=== PATIENT | female | born 1995 | race American Indian/Alaskan Native ===

== ENCOUNTER 2016-10-26 04:26 | Emergency (ER) | payer SELFPAY ==
[~2016-10-26 04:26] MED LIST: MOTRIN PO ONE
[2016-10-26] MEDS: TORADOL IM ONE (05:00)
[2016-10-26] MEDS ORDERED: ZOFRAN ODT PO ONE (05:00)
--- NOTE | 2016-10-26 05:13 | Emergency Department Report ---
HPI - General Chief Complaint: Abdominal Pain Time Seen by Provider: 10/26/16 05:00 - HPI HPI: 21-year-old female presents today with menstrual cramping, nausea, vomiting since 3 AM this morning. I asked if a history of similar symptoms. Patient states that she usually has similar symptoms on the first day of her menses which is today. Patient was seen at [facility] a couple months ago and was worked up and given medication but she did not fill the medication. Denies any other medical complaints. Denies fever, chills, chest pain, shortness of breath , vaginal discharge, urinary symptoms. ED Past Medical Hx - Past Medical History Previous Medical History?: No - Surgical History Past Surgical History?: No - Social History Smoking Status: Current Every Day Smoker Substance Use Type: None - Medications Home Medications: Home Medications Medication Instructions Recorded Confirmed Last Taken Type Ibuprofen [Motrin] 600 mg PO Q8H PRN #30 tablet 10/26/16 Unknown Rx Ondansetron [Zofran Odt] 4 mg PO Q8HR #14 tab.rapdis 10/26/16 Unknown Rx ED Review of Systems ROS: Stated complaint: ABDOMINAL PAIN Other details as noted in HPI Constitutional: denies: chills, fever, malaise Eyes: denies: eye pain ENT: denies: ear pain, throat pain, congestion Respiratory: denies: cough, shortness of breath, wheezing Cardiovascular: denies: chest pain, palpitations Endocrine: no symptoms reported Gastrointestinal: abdominal pain, nausea, vomiting Neurological: denies: headache, weakness Physical Exam - Physical Exam Vital Signs: Vital Signs 10/26/16 04:30 Temperature 98.0 F Pulse Rate 81 Respiratory 26 H Rate Blood Pressure 159/120 O2 Sat by Pulse 100 Oximetry Physical Exam: GENERAL: The patient is well-developed and well-nourished. Patient is in NAD. HEAD: Normocephalic. Atraumatic. CHEST/LUNGS: Clear to auscultation throughout. HEART/CARDIOVASCULAR: Regular rate and rhythm. ABDOMEN: Abdomen is soft, nontender. Bowel sounds normoactive. No guarding or rebound tenderness. Negative for CVA tenderness bilaterally. EXTREMITIES: Peripheral pulses intact. Capillary refill less than 2 seconds. NEURO: Alert and oriented x 3. Normal gait. ED Course Vital Signs 10/26/16 04:30 Temperature 98.0 F Pulse Rate 81 Respiratory 26 H Rate Blood Pressure 159/120 O2 Sat by Pulse 100 Oximetry ED Medical Decision Making - Lab Data Vital Signs 10/26/16 10/26/16 04:30 05:15 Temperature 98.0 F 97.9 F Pulse Rate 81 84 Respiratory 26 H 20 Rate Blood Pressure 159/120 Blood Pressure 145/96 [Right] O2 Sat by Pulse 100 97 Oximetry - Medical Decision Making 21-year-old female presents today with menstrual cramping, nausea, vomiting 2 hours. Positive for history of similar symptoms and states this is not any different. Patient was given Toradol and Zofran today. Patient is in no acute distress at this time. She will be discharged home and is encouraged to follow up with a primary care provider. She will be sent home on Motrin and Zofran and is encouraged to return to the emergency room for any worsening symptoms. Critical care attestation.: If time is entered above; I have spent that time in minutes in the direct care of this critically ill patient, excluding procedure time. ED Disposition Clinical Impression: Menstrual cramps Nausea & vomiting Qualifiers: Vomiting type: unspecified Vomiting Intractability: non-intractable Qualified Code(s): R11.2 - Nausea with vomiting, unspecified Disposition: DISCHARGED TO HOME OR SELFCARE Is pt being admited?: No Does the pt Need Aspirin: No Condition: Stable Instructions: Dysmenorrhea (ED) Additional Instructions: Follow-up with primary care provider. Return to the emergency department if symptoms worsen. Prescriptions: Ibuprofen [Motrin] 600 mg PO Q8H PRN #30 tablet PRN Reason: Pain Ondansetron [Zofran Odt] 4 mg PO Q8HR #14 tab.rapdis Referrals: PRIMARY CARE, [Primary Care Provider] - 3-5 Days [facility] [Outside] - 3-5 Days Forms: Work/School Release Form(ED) Time of Disposition: 05:18
[2016-10-26 05:18] VITALS: BP 145/96
== END 2016-10-26 05:17 | disposition home or self-care (01) ==
LOC: ED 04:26
DX: N94.6 Dysmenorrhea, unspecified (principal); R11.2 Nausea with vomiting, unspecified; F17.200 Nicotine dependence, unspecified, uncomplicated
CPT/HCPCS: 96372; 99282; J1885; Q0162

== ENCOUNTER 2017-01-16 12:58 | Emergency (ER) | payer SELFPAY ==
[2017-01-16 14:10] LABS: Anion Gap 24 mmol/L; Basophils % (Auto) 0.3 % (0.0-1.8); Blood Urea Nitrogen 10 mg/dL (7-17); Calcium 9.6 mg/dL (8.4-10.2); Carbon Dioxide 18 mmol/L (22-30); Chloride 96.7 mmol/L (98-107); Eosinophils % (Auto) 0.1 % (0.0-4.3); Glucose 93 mg/dL (65-100); Hematocrit 39.7 % (30.3-42.9); Hemoglobin 12.7 gm/dl (10.1-14.3); Mean Corpuscular HGB Conc 32 % (30-34); Mean Corpuscular Volume 79 fl (79-97); Platelet Count 251 K/mm3 (140-440); Potassium 3.8 mmol/L (3.6-5.0); Red Blood Count 5.04 M/mm3 (3.65-5.03); Red Cell Distribution Width 12.7 % (13.2-15.2); Sodium 135 mmol/L (137-145); White Blood Count 15.8 K/mm3 (4.5-11.0)
[2017-01-16 14:12] LABS: Mean Corpuscular Hemoglobin 25 pg (28-32)
[2017-01-16 14:28] VITALS: BP 144/88
[2017-01-16 16:58] LABS: Bilirubin,Urine NEG (Negative); Blood,Urine NEG (Negative); Ketones,Urine 80 mg/dL (Negative); Leukocyte Esterase,Urine NEG (Negative); Mucus,Urine 3+ /HPF; Nitrite,Urine NEG (Negative); Urobilinogen,Urine < 2.0 mg/dL (<2.0)
--- NOTE | 2017-01-18 01:12 | ED Elopement Review ---
ED Pt Elopement review - Results review Lab results: Laboratory Tests 01/16/17 01/16/17 01/16/17 13:32 13:32 16:15 WBC 15.8 H RBC 5.04 H Hgb 12.7 Hct 39.7 MCV 79 MCH 25 L MCHC 32 RDW 12.7 L Plt Count 251 Lymph % (Auto) 5.9 L Braxton % (Auto) 4.8 Eos % (Auto) 0.1 Baso % (Auto) 0.3 Lymph # 0.9 L Braxton # 0.8 Eos # 0.0 Baso # 0.1 Seg Neutrophils % 88.9 H Seg Neutrophils # 14.1 H Sodium 135 L Potassium 3.8 Chloride 96.7 L Carbon Dioxide 18 L Anion Gap 24 BUN 10 Creatinine 0.5 L Estimated GFR > 60 BUN/Creatinine Ratio 20.00 Glucose 93 Calcium 9.6 Urine Color Yellow Urine Turbidity Slightly-cloudy Urine pH 6.0 Urine Protein 100 mg/dl Urine Glucose (UA) 50 Urine Ketones 80 Urine Blood Neg Urine Nitrite Neg Urine Bilirubin Neg Urine Urobilinogen < 2.0 Ur Leukocyte Esterase Neg Urine WBC (Auto) 2.0 Urine RBC (Auto) 3.0 U Epithel Cells (Auto) 11.0 Urine Mucus 3+ - Call Back decision Pt Call Back Decision: Pt to F/U with PMD
== END 2017-01-16 14:50 | disposition left against medical advice (07) ==
LOC: ED 12:58
DX: O21.0 Mild hyperemesis gravidarum (principal); Z3A.01 Less than 8 weeks gestation of pregnancy
CPT/HCPCS: 36415; 80048; 81001; 85025; 93005; 93010

== ENCOUNTER 2017-03-16 10:32 | Emergency (ER) | payer SELFPAY ==
[2017-03-16 11:37] LABS: Basophils % (Auto) 0.4 % (0.0-1.8); Eosinophils % (Auto) 0.5 % (0.0-4.3); Hematocrit 36.7 % (30.3-42.9); Hemoglobin 12.1 gm/dl (10.1-14.3); Mean Corpuscular HGB Conc 33 % (30-34); Mean Corpuscular Hemoglobin 26 pg (28-32); Mean Corpuscular Volume 79 fl (79-97); Platelet Count 236 K/mm3 (140-440); Red Blood Count 4.62 M/mm3 (3.65-5.03); Red Cell Distribution Width 13.9 % (13.2-15.2); White Blood Count 11.2 K/mm3 (4.5-11.0)
[2017-03-16 12:11] LABS: Bilirubin,Urine NEG (Negative); Blood,Urine NEG (Negative); Ketones,Urine NEG (Negative); Leukocyte Esterase,Urine NEG (Negative); Nitrite,Urine NEG (Negative)
[2017-03-16 12:37] LABS: Bacteria,Urine 1+ /HPF (Negative); RBC,Urine < 1.0 /HPF (0.0-6.0); WBC,Urine < 1.0 /HPF (0.0-6.0)
[2017-03-16 14:05] VITALS: BP 134/60
--- NOTE | 2017-03-16 14:34 | Emergency Department Report ---
HPI - General Chief Complaint: Vaginal Bleeding Time Seen by Provider: 03/16/17 14:10 - HPI HPI: This is a 21-year-old female presents to the emergency department with complaint of vaginal spotting since yesterday while being 16 weeks . She is . She does not have any [facility]RNA[facility] but she has been taking vitamins. She has a little bit of left-sided abdominal cramping. She denies any past medical history. No recent travel or sick contacts at home. She is not taken anything for symptoms prior to presentation. ED Past Medical Hx - Past Medical History Previous Medical History?: No - Surgical History Past Surgical History?: No - Social History Smoking Status: Never Smoker Substance Use Type: None - Medications Home Medications: Home Medications Medication Instructions Recorded Confirmed Last Taken Type No Known Home Medications [No 03/16/17 03/16/17 Unknown History Reported Home Medications] ED Review of Systems ROS: Stated complaint: SPOTTING/16 WEEKS Other details as noted in HPI Comment: All other systems reviewed and negative Constitutional: denies: chills, fever Eyes: denies: eye pain, eye discharge, vision change ENT: denies: ear pain, throat pain Respiratory: denies: cough, shortness of breath, wheezing Cardiovascular: denies: chest pain, palpitations Gastrointestinal: other (cramping). denies: abdominal pain, nausea, diarrhea Genitourinary: other (vaginal spotting). denies: urgency, dysuria, discharge Musculoskeletal: denies: back pain, joint swelling, arthralgia Skin: denies: rash, lesions Physical Exam - Physical Exam Vital Signs: Vital Signs 03/16/17 03/16/17 11:01 14:05 Temperature 98.5 F Pulse Rate 102 H 88 Respiratory 18 18 Rate Blood Pressure 130/81 Blood Pressure 134/60 [Right] O2 Sat by Pulse 99 99 Oximetry Physical Exam: GENERAL: The patient is well-developed well-nourished. HEENT: Normocephalic. Atraumatic. Extraocular motions are intact. Patient has moist mucous membranes. NECK: Supple. Trachea is midline. CHEST/LUNGS: Clear to auscultation. There is no respiratory distress noted. HEART/CARDIOVASCULAR: Regular. There is no tachycardia. There is no gallop rub or murmur. ABDOMEN: Abdomen is soft, nontender. Patient has normal bowel sounds. There is no abdominal distention. SKIN: Skin is warm and dry. NEURO: The patient is awake, alert, and oriented. The patient is cooperative. The patient has no focal neurologic deficits. The patient has normal speech. MUSCULOSKELETAL: There is no tenderness or deformity. There is no limitation range of motion. There is no evidence of acute injury. ED Course Vital Signs 03/16/17 03/16/17 11:01 14:05 Temperature 98.5 F Pulse Rate 102 H 88 Respiratory 18 18 Rate Blood Pressure 130/81 Blood Pressure 134/60 [Right] O2 Sat by Pulse 99 99 Oximetry ED Medical Decision Making - Lab Data Result diagrams: 03/16/17 11:11 - Radiology Data Radiology results: report reviewed Transvaginal/ ultrasound shows a single live intrauterine at about 15 weeks and 5 days. - Medical Decision Making 21-year-old female presents with some light vaginal spotting and abdominal cramping while . Beta hCG of 43,000. Ultrasound shows live intrauterine at about 15 weeks and 5 days. Patient will stay on vitamins. No urinary tract infection. Given multiple [facility]RNALIST referrals. Discussed the diagnosis of threatened miscarriage. She will return to the ER with any worsening of her symptoms or any acute distress. - Differential Diagnosis , threatened miscarriage, spontaneous miscarriage, UTI, fibroids Critical Care Time: No Critical care attestation.: If time is entered above; I have spent that time in minutes in the direct care of this critically ill patient, excluding procedure time. ED Disposition Clinical Impression: Threatened miscarriage Qualifiers: Weeks of gestation: 15 weeks Qualified Code(s): Z3A.15 - 15 weeks gestation of Disposition: DC-01 TO HOME OR SELFCARE Is pt being admited?: No Condition: Stable Instructions: Threatened Miscarriage (ED), (ED) Additional Instructions: Please follow-up with an MUSIC JOURNALIST in the next few days. Return to the emergency department with any worsening of your symptoms or any acute distress. You can take Tylenol every 4 hours, using weight-based dosing, as needed for discomfort. Otherwise, besides the vitamins and Tylenol, do not take any medications that are not prescribed by physician. Referrals: PRIMARY MD ROBERT [Primary Care Provider] - 3-5 Days [facility] [Provider Group] - 3-5 Days [facility] [Provider Group] - 3-5 Days [facility] [Provider Group] - 3-[address] [facility] [Outside] - 3-5 Days Time of Disposition: 16:27
--- NOTE | 2017-03-16 16:15 | Ultrasound Report ---
FINAL REPORT PROCEDURE: US OB \T\gt; = 14 WEEKS FETUS TECHNIQUE: Real-time transabdominal sonography of the uterus, placenta, amniotic fluid, adnexa, and fetus was performed with image documentation. Measurements were obtained to determine age/size. M-mode Doppler was used to document heartbeat. CPT 37509 HISTORY: preg, bleeding COMPARISON: No prior studies are available for comparison. FINDINGS: ADDITIONAL GESTATION: None. GENERAL: IUP: Single living intrauterine . Position: Cephalic at the time of the scan Placental position: Anterior and grade 0, without previa. Amniotic fluid volume: Subjectively within normal limits MATERNAL: Cervical length: Transabdominal measurement is 2.4 cm. FETUS: Heart rate and rhythm: 163 BPM, Regular. anatomic survey: Not performed MEASUREMENTS: BPD: 3.2 centimeters, 16 weeks 1 day HC: 12.5 centimeters, 16 weeks 2 days AC: 9.6 centimeters, 15 weeks 5 days FL: 2.0 centimeters, 16 weeks 1 day Mean Gestational Age (composite criteria): 15 weeks 5 days Estimated Weight: 136 grams. Estimated Due Date:09/02/2017 IMPRESSION: Single intrauterine gestation at 15 weeks 5 days. Estimated due date: 09/02/2017.
== END 2017-03-16 16:58 | disposition home or self-care (01) ==
LOC: ED 10:32
DX: O20.0 Threatened abortion (principal); Z3A.15 15 weeks gestation of pregnancy
CPT/HCPCS: 36415; 76805; 81001; 84702; 85025; 86850; 86900; 86901

== ENCOUNTER 2017-07-17 12:42 | Outpatient (CLI) | payer SELFPAY ==
[2017-07-17 14:28] VITALS: BP 130/77
[2017-07-17] MEDS ORDERED: LACTATED RINGERS 500 ML IV ONE (14:30)
[2017-07-17 15:06] LABS: Bacteria,Urine 1+ /HPF (Negative); Bilirubin,Urine NEG (Negative); Blood,Urine NEG (Negative); Ketones,Urine TR mg/dL (Negative); Leukocyte Esterase,Urine NEG (Negative); Mucus,Urine 3+ /HPF; Nitrite,Urine NEG (Negative)
== END 2017-07-17 15:15 | disposition home or self-care (01) ==
LOC: TRG 12:42
PROVIDERS: ATTEND Obstetrics & Gynecology
DX: O47.03 False labor before 37 completed weeks of gestation, third trimester (principal); Z3A.33 33 weeks gestation of pregnancy
CPT/HCPCS: 59025; 81001

== ENCOUNTER 2017-08-05 20:08 | Outpatient (CLI) | payer OTHER ==
[2017-08-05] MEDS ORDERED: LACTATED RINGERS 500 ML IV ONE (20:20)
[2017-08-05 20:30] VITALS: BP 128/81
[2017-08-05 20:45] LABS: Bacteria,Urine 1+ /HPF (Negative); Bilirubin,Urine NEG (Negative); Blood,Urine NEG (Negative); Ketones,Urine NEG (Negative); Leukocyte Esterase,Urine SM (Negative); Mucus,Urine FEW /HPF; Nitrite,Urine NEG (Negative); Protein,Urine <15 mg/dL mg/dL (Negative)
== END 2017-08-05 22:05 | disposition home or self-care (01) ==
LOC: TRG 20:08
PROVIDERS: ATTEND Obstetrics & Gynecology
DX: O47.03 False labor before 37 completed weeks of gestation, third trimester (principal); Z3A.36 36 weeks gestation of pregnancy
CPT/HCPCS: 81001; 86850; 86900; 86901

== ENCOUNTER 2017-08-24 10:42 | Outpatient (CLI) | payer OTHER ==
[2017-08-24] MEDS ORDERED: TYLENOL PO ONE (11:00)
[2017-08-24 11:39] LABS: Bilirubin,Urine NEG (Negative); Blood,Urine NEG (Negative); Ketones,Urine NEG (Negative); Leukocyte Esterase,Urine TR (Negative); Mucus,Urine FEW /HPF; Nitrite,Urine NEG (Negative); Protein,Urine <15 mg/dL mg/dL (Negative)
[2017-08-24 12:55] LABS: Hematocrit 32.3 % (30.3-42.9); Hemoglobin 10.3 gm/dl (10.1-14.3); Mean Corpuscular HGB Conc 32 % (30-34); Mean Corpuscular Volume 75 fl (79-97); Platelet Count 212 K/mm3 (140-440); Red Blood Count 4.32 M/mm3 (3.65-5.03); Red Cell Distribution Width 14.6 % (13.2-15.2); White Blood Count 7.6 K/mm3 (4.5-11.0)
[2017-08-24 12:58] LABS: Mean Corpuscular Hemoglobin 24 pg (28-32)
[2017-08-24 13:19] LABS: Alanine Aminotransferase 11 units/L (7-56); Lactate Dehydrogenase 229 units/L (91-180); Uric Acid 3.7 mg/dL (3.5-7.6)
[2017-08-24 13:25] VITALS: BP 123/77
== END 2017-08-24 14:00 | disposition home or self-care (01) ==
LOC: TRG 10:42
PROVIDERS: ATTEND Obstetrics & Gynecology
DX: O47.1 False labor at or after 37 completed weeks of gestation (principal); Z3A.39 39 weeks gestation of pregnancy
CPT/HCPCS: 36415; 59025; 81001; 82565; 83615; 84450; 84460; 84550; 85027

== ENCOUNTER 2017-08-25 07:45 | Inpatient (IN) | payer SELFPAY ==
[2017-08-25 12:07] LABS: Bilirubin,Urine NEG (Negative); Blood,Urine NEG (Negative); Color,Urine Yellow (Yellow); Mucus,Urine 1+ /HPF; Nitrite,Urine NEG (Negative)
[2017-08-25 12:21] LABS: Amphetamine Screen,Urine PRESUMPTIVE NEGATIVE; Benzodiazepines Screen,Urine PRESUMPTIVE NEGATIVE; Cocaine Screen,Urine PRESUMPTIVE NEGATIVE; Methadone Screen,Urine PRESUMPTIVE NEGATIVE; Opiate Screen,Urine PRESUMPTIVE NEGATIVE
[2017-08-25] MEDS ORDERED: ePHEDrine SULFATE IV PRN ×2 (12:34→16:00)
[2017-08-25] MEDS ORDERED: XYLOCAINE 2% INFILTRATI ONE (12:34)
[2017-08-25] MEDS ORDERED: PHENERGAN PO PRN (12:34)
[2017-08-25 12:50] LABS: Cannabinoid Screen,Urine PRESUMPTIVE POSITIVE
[2017-08-25] MEDS: LACTATED RINGERS 1,000 ML IV SCH ×3 (12:59→15:38)
[2017-08-25] MEDS ORDERED: POLYCILLIN/NS 2 GM/100 ML 2 GM/100 ML BAG IV ONE (13:00)
[2017-08-25] MEDS ORDERED: PITOCin/NS 20 UNIT/1000ML DRIP 20 UNITS/1,000 ML BAG IV SCH (13:00)
[2017-08-25] MEDS ORDERED: Fluarix Quad 2017-2018(36 MOS+ IM ONE (13:07)
[2017-08-25] MEDS: STADOL IV PRN (13:52)
[2017-08-25 13:59] LABS: Hematocrit 33.6 % (30.3-42.9); Hemoglobin 10.7 gm/dl (10.1-14.3); Mean Corpuscular HGB Conc 32 % (30-34); Mean Corpuscular Volume 76 fl (79-97); Platelet Count 198 K/mm3 (140-440); Red Cell Distribution Width 14.5 % (13.2-15.2)
[2017-08-25 14:08] LABS: Mean Corpuscular Hemoglobin 24 pg (28-32)
[2017-08-25 14:23] LABS: Hepatitis C Virus Antibody Non-Reactive (NonReactive)
--- NOTE | 2017-08-25 14:58 | History and Physical Report ---
History of Present Illness Date of examination: 08/25/17 Date of admission: 08/25/17 12:25 History of present illness: 22-year-old black female para 0 who is at estimated gestational age of 38 weeks by 15 week ultrasound presents to labor and delivery with complaints of regular contractions patient on observation had a change in the cervix in triage being admitted for active labor. Patient's course is been complicated by lack of a care the patient has had several visits to the hospital with says she could not get insurance because of her lack of [place] citizenship Past History Past Medical History: no pertinent history Past Surgical History: no surgical history Social history: single - Obstetrical History Expected Date of Delivery: 09/02/17 Actual Gestation: 38 Week(s) 6 Day(s) : 1 Para: 0 Hx # Term Pregnancies: 0 Number of Pregnancies: 0 Spontaneous Abortions: 0 Induced : 0 Medications and Allergies Allergies Allergy/AdvReac Type Severity Reaction Status Date / Time No Known Allergies Allergy Verified 08/24/17 10:52 Home Medications Medication Instructions Recorded Confirmed Last Taken Type Vit Calc,Iron,Folic 1 each PO DAILY 08/24/17 08/25/17 08/18/17 09:00 History [ Vitamins] Active Meds: Active Medications Butorphanol Tartrate (Stadol) 2 mg IV Q2H PRN PRN Reason: Pain , Severe (7-10) Last Admin: 08/25/17 13:52 Dose: 2 mg Ephedrine Sulfate (Ephedrine Sulfate) 10 mg IV Q2M PRN PRN Reason: Hypotension Lactated Ringer's (Lactated Ringers) 1,000 mls @ 125 mls/hr IV DIRECT JERRELL Last Admin: 08/25/17 14:21 Dose: 125 mls/hr Oxytocin/Sodium Chloride (Pitocin/Ns 20 Unit/1000ml Drip) 20 units in 1,000 mls @ 125 mls/hr IV DIRECT JERRELL Ampicillin Sodium (Polycillin/Ns 1 Gm/50 Ml) 1 gm in 50 mls @ 100 mls/hr IV Q4HR JERRELL PRN Reason: Protocol Promethazine HCl (Phenergan) 25 mg PO Q6H PRN PRN Reason: Nausea And Vomiting - Vital Signs Vital signs: Vital Signs Temp Pulse Resp BP Pulse Ox 97.4 F L 78 20 129/75 98 08/25/17 07:54 08/25/17 07:54 08/25/17 07:54 08/25/17 07:54 08/25/17 07:54 Temp Pulse Resp BP Pulse Ox 97.6 F 79 20 128/76 96 08/25/17 12:55 08/25/17 13:08 08/25/17 13:52 08/25/17 12:57 08/25/17 13:08 - Physical Exam Breasts: Positive: deferred Cardiovascular: Regular rate Lungs: Positive: Normal air movement Genitourinary (Female): Positive: normal external genitalia Vagina: Positive: normal moisture Cervix: Positive: other Uterus: Positive: enlarged Anus/Rectum: Positive: normal perianal skin - Obstetrical FHR: category 1 Cervical Dilatation: 5 Cervical Effacement Percentage: 80 station: -1 Uterine Contraction Pattern: Regular Results Result Diagrams: 08/25/17 13:15 Abnormal lab results 08/25/17 Range/Units 13:15 MCV 76 L (79-97) fl MCH 24 L (28-32) pg All other labs normal. Assessment and Plan - Patient Problems (1) Insufficient care in third trimester Current Visit: Yes Status: Acute Plan to address problem: Patient adjustments even cares comes in triage here labor and delivery states that she can get insurance because is not [place] citizen (2) Drug abuse during Current Visit: Yes Status: Acute Plan to address problem: And taken history patient denies any drug use but has a positive urine drug screen. We'll have social media director consult after delivery (3) Active labor at term Current Visit: Yes Status: Acute Plan to address problem: Admitted labor and deliver follow labor protocol will give antibiotic prophylaxis
[2017-08-25 15:19] LABS: Rubella IgG Antibody Immune (Immune)
--- NOTE | 2017-08-25 15:30 | Event Note ---
Date: 08/25/17 AROM clear fluid unable to place internal monitors due patient's complaints about vaginal exam
[2017-08-25] MEDS ORDERED: NARCAN 2 MG/2 ML IV PRN (15:39)
--- NOTE | 2017-08-25 15:39 | Anesthesia Consultation ---
Anesthesia Consult and Med Hx Date of service: 08/25/17 - Airway Anesthetic Teeth Evaluation: Good ROM Head & Neck: Adequate Mental/Hyoid Distance: Adequate Intubation Access Assessment: Probably Good - Pre-Operative Health Status ASA Pre-Surgery Classification: ASA2, Emergency Proposed Anesthetic Plan: Epidural, Spinal - Pulmonary Hx Asthma: No COPD: No Hx Pneumonia: No - Cardiovascular System Hx Hypertension: No - Central Nervous System Hx Seizures: No Hx Psychiatric Problems: No - Endocrine Hx Renal Disease: No Hx End Stage Renal Disease: No Hx Hypothyroidism: No Hx Hyperthyroidism: No - Hematic Hx Anemia: No Hx Sickle Cell Disease: No - Other Systems Hx Alcohol Use: No
[2017-08-25] MEDS: fentaNYL-BUPIV 2 MCG/ML-0.125% 200 MCG/100 ML BAG EPIDURAL SCH ×2 (16:11→17:36)
[2017-08-25] MEDS: POLYCILLIN/NS 1 GM/50 ML 1 GM/50 ML BAG IV SCH ×2 (18:00→18:52)
[2017-08-25] MEDS ORDERED: PITOCin/NS 30 UNIT/500ML 30,000 MILLIUNITS/500 ML BAG IV ONE (19:00)
[2017-08-26] MEDS ORDERED: XYLOCAINE 2% INFILTRATI ONE (00:43)
--- NOTE | 2017-08-26 01:23 | Procedure Note ---
OB Delivery Note - Delivery Date of Delivery: 08/26/17 Surgeon: DAISHA CROCKETT Estimated blood loss: 300cc - Vaginal Intrapartum events: no care Delivery augmentation: rupture of membranes, pitocin Delivery monitor: external FHT, external uterine, internal FHT, internal uterine Route of delivery: Delivery placenta: spontaneous Delivery laceration: 2nd degree Delivery repair: vicryl Anesthesia: local, epidural - Infant A at 1 minute: 8 at 5 minutes: 9 Infant Gender: Female
[2017-08-26] MEDS: STADOL IV PRN (01:26)
[2017-08-26] MEDS ORDERED: DULCOLAX PR PRN (02:24)
[2017-08-26] MEDS ORDERED: BENADRYL PO PRN (02:24)
[2017-08-26] MEDS ORDERED: PHENERGAN PO PRN (02:24)
[2017-08-26] MEDS ORDERED: MILK OF MAGNESIA PO PRN (02:24)
[2017-08-26] MEDS ORDERED: SODIUM CHLORIDE FLUSH SYRINGE 10 ML IV PRN (02:24)
[2017-08-26] MEDS ORDERED: TYLENOL PO PRN (02:24)
[2017-08-26] MEDS ORDERED: TUCKS PAD TP PRN (02:24)
[2017-08-26] MEDS: MOTRIN PO SCH ×2 (02:25→06:27)
[2017-08-26] MEDS ORDERED: MORPHINE IV ONE (02:56)
[2017-08-26] MEDS ORDERED: NORCO 5/325 PO PRN (02:56)
[2017-08-26] MEDS: LANSINOH TP PRN (07:09)
[2017-08-26 14:26] LABS: Hematocrit 31.3 % (30.3-42.9); Hemoglobin 9.6 gm/dl (10.1-14.3)
[2017-08-27] MEDS: MOTRIN PO SCH ×4 (05:30→23:52)
--- NOTE | 2017-08-27 08:37 | Progress Note ---
Assessment and Plan patient doing well, no complaints. requesting d/c home today. Jenifer CALIX abril, H&H 9.6/31.3. Patient instructed on the importance of follow up in the office and control options reviewed. Will place d/c on chart per request. - Patient Problems (1) Normal vaginal delivery Current Visit: Yes Status: Acute (2) Drug abuse during Current Visit: Yes Status: Acute (3) Insufficient care in third trimester Current Visit: Yes Status: Acute Subjective - Subjective Date of service: 08/27/17 Principal diagnosis: day #1 s/p Patient reports: appetite normal, voiding normally, pain well controlled, ambulating normally, no dizzy ambulation, no nauseated [place]: doing well, nursing well Objective - Vital Signs Latest vital signs: Vital Signs Temp Pulse Resp BP BP Pulse Ox 08/27/17 07:54 81 99 08/27/17 07:53 98.7 F 78 18 139/97 99 08/27/17 01:29 74 125/83 100 08/27/17 00:30 98.0 F 76 20 125/83 100 08/26/17 21:30 137/86 08/26/17 17:17 97.9 F 100 H 20 145/79 08/26/17 12:30 98.6 F 90 18 128/81 08/26/17 09:08 98.9 F 85 18 131/75 Intake and Output 08/26/17 08/27/17 08/27/17 23:59 07:59 15:59 Intake Total 480 240 Balance 480 240 Intake: Oral 480 240 Other: Total, Intake Amount 240 240 # Voids Void 1 1 - Exam Breasts: Present: normal, Cardiovascular: Present: Regular rate Lungs: Present: Clear to auscultation, Normal air movement Abdomen: Present: normal appearance, soft Vulva: both: laceration/episiotomy Uterus: Present: normal, firm, fundal height at umbilicus Extremities: Present: normal Incision: Present: normal, dry, intact - Labs Labs: Abnormal lab results 08/26/17 Range/Units 13:48 Hgb 9.6 L (10.1-14.3) gm/dl
--- NOTE | 2017-08-27 08:39 | Discharge Summary ---
Providers - Providers Date of Admission: 08/25/17 12:25 Date of discharge: 08/27/17 (desires d/c home) Attending physician: DAISHA CROCKETT 08/26/17 02:24 Consult to Case Management [CONS] Routine Services Needed at Discharge: Club Room Attendant Notified:: after hours Primary care physician: KIMBERLI SILVA MD Hospitalization Reason for admission: active labor Delivery: Episiotomy: none Laceration: 2nd degree Incision: normal, dry, intact Other procedures: none complications: none Discharge diagnosis: IUP at term delivered [place] baby: female Hospital course: uncomplicated vag delivery Condition at discharge: Good Disposition: DC-01 TO HOME OR SELFCARE - Discharge Diagnoses (1) Normal vaginal delivery Status: Acute (2) Drug abuse during Status: Acute (3) Insufficient care in third trimester Status: Acute Plan - Discharge Medications Prescriptions: Ibuprofen [Motrin 600 MG tab] 600 mg PO Q8H PRN #30 tablet PRN Reason: Pain - Provider Discharge Summary Activity: routine, no sex for 6 weeks, no heavy lifting 4 weeks, no strenuous exercise Diet: routine Instructions: routine Additional instructions: [] Smoking cessation referral if applicable(refer to patient education folder for contact #) [] Refer to [facility] Booklet Call your doctor immediately for: * Fever > 100.5 * Heavy vaginal bleeding ( >1 pad per hour) * Severe persistent headache * Shortness of breath * Reddened, hot, painful area to leg or breast * Drainage or odor from incision. * Keep incision clean and dry at all times and follow doctor's instructions regarding bathing/showering - Follow up plan Follow up: ADI GILMAN MD [Staff Physician] - 10/01/17 (Congratulations! Please call [phone] to schedule your appointment in 4 weeks. Call for any questions or concerns.)
[2017-08-27] MEDS ORDERED: MAGNESIUM SULFATE 4GM/100ML 4 GM/100 ML BAG IV ONE (13:33)
--- NOTE | 2017-08-27 13:33 | Event Note ---
Date: 08/27/17 elevated blood pressures noted in chart since rounds this AM, PIH labs ordered. D/c order cancelled. RN informed and instructed to get cath UA sample. Dr. Blake consulted. Will start mag sulfate now.
[2017-08-27] MEDS ORDERED: MAGNESIUM SULFATE 40GM/1000ML 40 GM/1,000 ML BAG IV NR (14:00)
[2017-08-27] MEDS: LACTATED RINGERS 1,000 ML IV SCH (14:17)
[2017-08-27 14:18] LABS: Hematocrit 30.9 % (30.3-42.9); Hemoglobin 9.8 gm/dl (10.1-14.3); Mean Corpuscular HGB Conc 32 % (30-34); Mean Corpuscular Hemoglobin 24 pg (28-32); Mean Corpuscular Volume 76 fl (79-97); Platelet Count 213 K/mm3 (140-440); Red Blood Count 4.06 M/mm3 (3.65-5.03)
[2017-08-27 14:49] LABS: Alanine Aminotransferase 12 units/L (7-56); Uric Acid 4.5 mg/dL (3.5-7.6)
[2017-08-27] MEDS: PRENATAL VITAMIN PO SCH (15:23)
[2017-08-27 18:01] LABS: Bilirubin,Urine NEG (Negative); Blood,Urine LG (Negative); Color,Urine Yellow (Yellow); Mucus,Urine FEW /HPF; Nitrite,Urine NEG (Negative); Protein,Urine <15 mg/dL mg/dL (Negative); Urobilinogen,Urine < 2.0 mg/dL (<2.0)
[2017-08-27 18:04] LABS: RBC,Urine > 182.0 /HPF (0.0-6.0)
[2017-08-27] MEDS: NORMODYNE PO SCH (20:44)
[2017-08-28] MEDS: MOTRIN PO SCH ×2 (05:21→17:54)
[2017-08-28] MEDS: LACTATED RINGERS 1,000 ML IV SCH (05:25)
--- NOTE | 2017-08-28 06:53 | Progress Note ---
Assessment and Plan - Patient Problems (1) Pre-eclampsia in period Onset Date: ~08/27/17 Current Visit: Yes Status: Acute Plan to address problem: 22yo s/o vaginal delivery with elevated BPs Decision to start MGSO4 X 24 hours Pt has now been on MagSulfate X 18 hours Last mag level 4.8 Due to be d/c @ 1300. Pt w/o DAVIS, blurred vision, chest pain. Pt is receiving labetalol 200mg po BID BP are 140-120/80s FF below umb Lochia small Perineum slight swelling intact Stable s/p ; PreE P: complete MGSO4 therapy, continue Labetalol Will review pt with . Continue POC as ordered Subjective - Subjective Date of service: 08/28/17 (pt resting No c/o voiced; MGSO4 infusing) Principal diagnosis: day #2 s/p ; PreE (MGSO4 X 24hrs) Patient reports: appetite normal, voiding normally (m[place]in[place] clear yellow urine), pain well controlled [place]: doing well Objective - Vital Signs Latest vital signs: Vital Signs Temp Pulse Resp BP BP Pulse Ox 08/28/17 02:10 20 128/83 100 08/28/17 00:05 98.2 F 85 20 145/87 100 08/27/17 21:45 141/93 08/27/17 20:10 97.3 F L 91 H 20 158/104 100 08/27/17 18:48 90 22 150/100 08/27/17 16:00 98.2 F 91 H 18 142/88 100 08/27/17 14:40 18 109/80 08/27/17 14:35 66 18 118/75 08/27/17 14:30 81 18 122/77 08/27/17 14:25 82 18 154/92 100 08/27/17 13:30 98.5 F 83 18 166/114 99 08/27/17 12:00 98.5 F 87 20 154/102 98 08/27/17 07:54 81 99 08/27/17 07:53 98.7 F 78 18 139/97 99 Intake and Output 08/27/17 08/27/17 08/28/17 14:59 22:59 06:59 Intake Total 944 351 7088 Output Total 2550 1200 Balance 340 -1805 100 Intake: IV 1000 Lactated Ringers 1,000 ml 1000 @ 125 mls/hr IV DIRECT REPLACED BY [facility] Rx#:[id number] Oral 340 620 300 Other 125 Output: Urine 2550 1200 Void 2550 1200 Other: Intake, Other Source Saline Solution Total, Intake Amount 340 100 200 Total, Output Amount 500 700 # Voids Void 1 1 - Exam Breasts: Present: normal, Cardiovascular: Present: Regular rate Lungs: Present: Normal air movement Abdomen: Present: normal appearance, soft Vulva: both: normal Uterus: Present: normal Extremities: Present: normal, edema Deep Tendon Reflex Grade: Normal +2 Incision: Present: normal, dry, intact - Labs Labs: Abnormal lab results 08/27/17 08/27/17 08/27/17 Range/Units 13:47 13:47 17:35 WBC 11.2 H (4.5-11.0) K/mm3 Hgb 9.8 L (10.1-14.3) gm/dl MCV 76 L (79-97) fl MCH 24 L (28-32) pg Creatinine 0.5 L (0.7-1.2) mg/dL Magnesium (1.7-2.3) mg/dL Lactate Dehydrogenase 287 H (91-180) units/L Urine WBC (Auto) 39.0 H (0.0-6.0) /HPF 08/27/17 08/28/17 Range/Units 19:55 00:48 WBC (4.5-11.0) K/mm3 Hgb (10.1-14.3) gm/dl MCV (79-97) fl MCH (28-32) pg Creatinine (0.7-1.2) mg/dL Magnesium 4.00 H 4.50 H (1.7-2.3) mg/dL Lactate Dehydrogenase (91-180) units/L Urine WBC (Auto) (0.0-6.0) /HPF
[2017-08-28] MEDS ORDERED: MAGNESIUM SULFATE 40GM/1000ML 40 GM/1,000 ML BAG IV SCH (10:00)
[2017-08-28] MEDS: NORMODYNE PO SCH ×2 (10:06→22:34)
[2017-08-28] MEDS: PRENATAL VITAMIN PO SCH (10:07)
[2017-08-28] MEDS: LANSINOH TP PRN (10:07)
[2017-08-28] MEDS ORDERED: VISTARIL PO ONE (18:21)
[2017-08-28] MEDS ORDERED: DERMOPLAST TP PRN (22:51)
[2017-08-29] MEDS: MOTRIN PO SCH
[2017-08-29] MEDS: LANSINOH TP PRN (02:46)
--- NOTE | 2017-08-29 06:46 | Discharge Summary ---
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 Condition at discharge: Good Disposition: DC-01 TO HOME OR SELFCARE - Discharge Diagnoses (1) Pre-eclampsia in period Status: Acute Comment: RTO 1 week BP check Plan - Discharge Medications Prescriptions: Ibuprofen [Motrin 600 MG tab] 600 mg PO Q8H PRN #30 tablet PRN Reason: Pain Labetalol [Normodyne TAB] 200 mg PO BID #60 tablet - Provider Discharge Summary Activity: routine, no sex for 6 weeks, no heavy lifting 4 weeks, no strenuous exercise Diet: other (no salt) Instructions: routine Additional instructions: [] Smoking cessation referral if applicable(refer to patient education folder for contact #) [] Refer to [facility]'s [facility] Booklet Call your doctor immediately for: * Fever > 100.5 * Heavy vaginal bleeding ( >1 pad per hour) * Severe persistent headache * Shortness of breath * Reddened, hot, painful area to leg or breast * Drainage or odor from incision. * Keep incision clean and dry at all times and follow doctor's instructions regarding bathing/showering - Follow up plan Follow up: ADI GILMAN MD [Staff Physician] - 7 Days (Congratulations! Please call [phone] to schedule your blood pressure check in one week. Please keep your appointment as scheduled on 10/01 in the [facility] office [address] [place] [address], behind [employer]. Take medications as prescribed. Call with headache unrelieved with Tylenol, blurred vision, chest pain.) Forms: [facility] Discharge Summary
[2017-08-29] MEDS: NORMODYNE PO SCH (09:11)
[2017-08-29] MEDS: PRENATAL VITAMIN PO SCH (09:11)
[2017-08-29 11:41] VITALS: BP 144/82
== END 2017-08-29 12:30 | disposition home or self-care (01) | DRG 774 ==
LOC: TRG 07:45 → LD 12:25 → OB 08-26 02:41
PROVIDERS: ADMIT Obstetrics & Gynecology; ATTEND Obstetrics & Gynecology
PROC: 0KQM0ZZ Repair Perineum Muscle, Open Approach (ICD-10-PCS; principal; 2017-08-26)
PROC: 10E0XZZ Delivery of Products of Conception, External Approach (ICD-10-PCS; 2017-08-26)
PROC: 10907ZC Drainage of Amniotic Fluid, Therapeutic from Products of Conception, Via Natural or Artificial Opening (ICD-10-PCS; 2017-08-26)
PROC: 3E0R3BZ Introduction of Anesthetic Agent into Spinal Canal, Percutaneous Approach (ICD-10-PCS; 2017-08-26)
PROC: 00HU33Z Insertion of Infusion Device into Spinal Canal, Percutaneous Approach (ICD-10-PCS; 2017-08-26)
DX: O99.324 Drug use complicating childbirth (principal); O14.95 Unspecified pre-eclampsia, complicating the puerperium; F19.10 Other psychoactive substance abuse, uncomplicated; Z3A.38 38 weeks gestation of pregnancy; Z37.0 Single live birth; O70.1 Second degree perineal laceration during delivery
CPT/HCPCS: 36415; 80307; 81001; 82565; 83615; 83735; 84450; 84460; 84550; 85014; 85018; 85027; 85660; 86592; 86706; 86762; 86803; 86850; 86900; 86901; 87806; 90686; 99211; A6250; G0463; J0290; J0595; J2270; J2590; J3475; J7120; Q0177

== ENCOUNTER 2020-09-23 06:54 | Emergency (ER) | payer SELFPAY ==
[2020-09-23 07:12] VITALS: BP 128/78
--- NOTE | 2020-09-23 08:07 | Emergency Department Report ---
ED Neck Pain/Injury HPI - General Chief Complaint: Neck Pain/Injury Stated Complaint: NECK INJURY/PAIN Mode of arrival: Ambulatory Limitations: No Limitations - History of Present Illness Initial Comments: The patient was evaluated in the emergency department for symptoms described in the history of present illness. He/she was evaluated in the context of the global COVID-19 pandemic, which necessitated consideration that the patient might be at risk for infection with the virus that causes COVID-19. Institutional protocols and algorithms that pertain to the evaluation of patients at risk for COVID-19 are in a state of rapid change based on information released by regulatory bodies including the CDC and federal and state organizations. These policies and algorithms were followed during the araseli falcon's care in the emergency department. Please note that these policies, procedures and recommendations changed on a rapid basis. 25-year-old -[place] female presents to the emergency room for neck pain x1 week. Patient states that she was jumping on the trampoline trying to do a flip with her kids and had injured her neck. Patient states turning her neck to the right makes the pain worse. Patient states is been taken Tylenol without much relief. She does admit to nausea none and some blurred vision. She denies any vomiting. She last took Excedrin 2 hours prior to arrival. She reports she has a headache and some numbness to her left arm is intermittent. Last menstrual period was 09/04/2020. She is 1 para 1. Primary care providers none. She currently takes no medications on a daily basis and has no known drug allergies. MD Complaint: neck pain, neck injury Onset/Timin -: week(s) Place: street/outdoors Radiation: left upper extremity Severity scale (0 -10): 8 Quality: tingling, other (throbbimg) Consistency: constant Improves With: cold therapy, heat therapy Worsens With: movement of neck Context: fall Associated Symptoms: headache, nausea, other (blurred vision) - Related Data Home Medications Medication Instructions Recorded Confirmed Last Taken Vit Calc,Iron,Folic 1 each PO DAILY 08/24/17 08/25/17 08/18/17 09:00 [ Vitamins] Previous Rx's Medication Instructions Recorded Last Taken Type labetaloL [Labetalol 200mg TAB] 200 mg PO BID #60 tablet 08/28/17 Unknown Rx Ibuprofen [Motrin 800 MG tab] 800 mg PO TID PRN #30 tablet 08/29/17 Unknown Rx Ibuprofen [Motrin 600 MG tab] 600 mg PO Q8H PRN #30 tablet 09/23/20 Unknown Rx Tizanidine HCl [Zanaflex 2mg CAP] 2 mg PO Q8H PRN #12 capsule 09/23/20 Unknown Rx Allergies Allergy/AdvReac Type Severity Reaction Status Date / Time No Known Allergies Allergy Verified 08/24/17 10:52 ED Review of Systems ROS: Stated complaint: NECK INJURY/PAIN Other details as noted in HPI Comment: All other systems reviewed and negative ED Past Medical Hx - Past Medical History Previous Medical History?: No Hx Hypertension: No Hx Congestive Heart Failure: No Hx Diabetes: No Hx Deep Vein Thrombosis: No Hx Renal Disease: No Hx Sickle Cell Disease: No Hx Seizures: No Hx Asthma: No Hx COPD: No Hx HIV: No - Surgical History Past Surgical History?: No - Social History Smoking Status: Never Smoker Substance Use Type: Marijuana - Medications Home Medications: Home Medications Medication Instructions Recorded Confirmed Last Taken Type Vit Calc,Iron,Folic 1 each PO DAILY 08/24/17 08/25/17 08/18/17 09:00 History [ Vitamins] labetaloL [Labetalol 200mg TAB] 200 mg PO BID #60 tablet 08/28/17 Unknown Rx Ibuprofen [Motrin 800 MG tab] 800 mg PO TID PRN #30 tablet 08/29/17 Unknown Rx Ibuprofen [Motrin 600 MG tab] 600 mg PO Q8H PRN #30 tablet 09/23/20 Unknown Rx Tizanidine HCl [Zanaflex 2mg CAP] 2 mg PO Q8H PRN #12 capsule 09/23/20 Unknown Rx ED Physical Exam - General Limitations: No Limitations - Head Head exam: Present: atraumatic, normocephalic - Eye Eye exam: Present: normal appearance, PERRL - ENT ENT exam: Present: mucous membranes moist - Neck Neck exam: Present: tenderness (Cervical) - Respiratory Respiratory exam: Present: accessory muscle use - Cardiovascular Cardiovascular Exam: Present: regular rate, normal rhythm. Absent: systolic murmur, diastolic murmur, rubs, gallop - Back Exam Back exam: Present: muscle spasm - Neurological Exam Neurological exam: Present: alert, oriented X3 - Psychiatric Psychiatric exam: Present: normal affect, normal mood - Skin Skin exam: Present: warm, dry, intact, normal color. Absent: rash ED Course Vital Signs 09/23/20 07:07 Temperature 98.1 F Pulse Rate 68 Respiratory 18 Rate Blood Pressure 128/78 O2 Sat by Pulse 100 Oximetry ED Medical Decision Making - Radiology Data Radiology results: report reviewed [facility] [address] [place] [address] Cat Scan Report Signed Patient: EVELYN BETANCOURT MR#: [id number] : 1995 Acct:[id number] Age/Sex: 25 / F ADM Date: 09/23/20 Loc: ED Attending Dr: Ordering Physician: ARASELI TAO Date of Service: 09/23/20 Procedure(s): CT cervical spine wo con Accession Number(s): [id number] cc: ARASELI TAO CT CERVICAL SPINE WITHOUT CONTRAST INDICATION: Neck injury, left shoulder pain, cervical TTP. TECHNIQUE: Axial imaging performed through the cervical spine without the use of contrast. Sagittal and coronal reconstructed images were also reviewed. All CT scans at this location are performed using CT dose reduction for ALARA by means of automated exposure control. COMPARISON: None FINDINGS: Alignment: Spinal alignment is normal. There is mild reversal of the normal cervical lordosis which is probably positional in nature. Muscular spasm could be considered. Bones: There is no acute osseous abnormality. No significant degenerative changes. Soft tissues: No acute or significant incidental soft tissue abnormality. IMPRESSION: No acute abnormality. Signer Name: Alfonso Tineo Jr, MD Signed: 09/23/2020 8:35 AM Workstation Name: [id number] Transcribed By: TTR Dictated By: ALFONSO TINEO JR, MD Electronically Authenticated By: ALFONSO TINEO JR, MD Signed Date/Time: 09/23/2035 DD/ 2 - Medical Decision Making 25-year-old -[place] female presents to the emergency room for neck pain x1 week. Patient states that she was jumping on the trampoline trying to do a flip with her kids and had injured her neck. Patient states turning her neck to the right makes the pain worse. Patient states is been taken Tylenol without much relief. She does admit to nausea none and some blurred vision. She denies any vomiting. She last took Excedrin 2 hours prior to arrival. She reports she has a headache and some numbness to her left arm is intermittent. Last menstrual period was 09/04/2020. She is 1 para 1. Primary care providers none. She currently takes no medications on a daily basis and has no known drug allergies. CT neck has been ordered. CT scan is negative for any acute abnormalities. I recommend ibuprofen and baclofen warm compresses and to follow-up with a neurologist if symptoms persist. Critical care attestation.: If time is entered above; I have spent that time in minutes in the direct care of this critically ill patient, excluding procedure time. ED Disposition Clinical Impression: Acute cervical myofascial strain Disposition: - TO HOME OR SELFCARE Is pt being admited?: No Does the pt Need Aspirin: No Condition: Stable Instructions: Cervical Strain and Sprain Rehab-[facility] Additional Instructions: CT is negative for any acute abnormalities. I recommend ibuprofen and muscle relaxant. I am referring her to a neurologist so he can follow-up. Prescriptions: Ibuprofen [Motrin 600 MG tab] 600 mg PO Q8H PRN #30 tablet PRN Reason: Pain Tizanidine HCl [Zanaflex 2mg CAP] 2 mg PO Q8H PRN #12 capsule PRN Reason: Muscle Spasm Referrals: PRIMARY CAREMD [Primary Care Provider] - 3-5 Days RAMONE WALTER II, MD [Staff Physician] - 3-5 Days Forms: Work/School Release Form(ED)
--- NOTE | 2020-09-23 08:39 | Cat Scan Report ---
CT CERVICAL SPINE WITHOUT CONTRAST INDICATION: Neck injury, left shoulder pain, cervical TTP. TECHNIQUE: Axial imaging performed through the cervical spine without the use of contrast. Sagittal and coronal reconstructed images were also reviewed. All CT scans at this location are performed us ing CT dose reduction for ALARA by means of automated exposure control. COMPARISON: None FINDINGS: Alignment: Spinal alignment is normal. There is mild reversal of the normal cervical lordosis which is probably positional in nature. Muscular spasm could be considered. Bones: There is no acute osseous abnormality. No significant degenerative changes. Soft tissues: No acute or significant incidental soft tissue abnormality. IMPRESSION: No acute abnormality. Signer Name: Alfonso Tineo Jr, MD Signed: 09/23/2020 8:35 AM Workstation Name: [id number]
== END 2020-09-23 09:30 | disposition home or self-care (01) ==
LOC: ED 06:54
DX: S16.1XXA Strain of muscle, fascia and tendon at neck level, initial encounter (principal); F12.10 Cannabis abuse, uncomplicated; Z79.899 Other long term (current) drug therapy; X50.9XXA Other and unspecified overexertion or strenuous movements or postures, initial encounter; Y93.89 Activity, other specified; Y92.89 Other specified places as the place of occurrence of the external cause; Y99.8 Other external cause status
CPT/HCPCS: 72125; 99283

== ENCOUNTER 2020-09-24 01:42 | Emergency (ER) | payer SELFPAY ==
[2020-09-24 02:57] VITALS: BP 123/83
--- NOTE | 2020-09-24 03:23 | Emergency Department Report ---
ED Head Trauma HPI - General Chief complaint: Headache Stated complaint: NECK PAIN Time Seen by Provider: 09/24/20 02:51 Source: patient Mode of arrival: Ambulatory Limitations: No Limitations - History of Present Illness Initial comments: Patient is a 25-year-old female presents emergency room complaints of a head injury that occurred a week ago. Patient states that she was jumping on the trampoline landed incorrectly. Patient was evaluated in the emergency department yesterday due to neck pain and had a CT scan of the cervical spine which showed no acute findings. she was given a prescription for ibuprofen and tizanidine. She states that she has only taken 1 dose of the medication. She states that her neck pain is improving but she continues to have a persistent headache. She states that she had one episode of vomiting secondary to the headache. She denies any vision changes, numbness, weakness, bowel or bladder incontinence, any other injury. no Medical history. No allergies medications. Last menstrual cycle 09/04/2020. - Related Data Home Medications Medication Instructions Recorded Confirmed Last Taken Vit Calc,Iron,Folic 1 each PO DAILY 08/24/17 08/25/17 08/18/17 09:00 [ Vitamins] Previous Rx's Medication Instructions Recorded Last Taken Type labetaloL [Labetalol 200mg TAB] 200 mg PO BID #60 tablet 08/28/17 Unknown Rx Ibuprofen [Motrin 800 MG tab] 800 mg PO TID PRN #30 tablet 08/29/17 Unknown Rx Ibuprofen [Motrin 600 MG tab] 600 mg PO Q8H PRN #30 tablet 09/23/20 Unknown Rx Tizanidine HCl [Zanaflex 2mg CAP] 2 mg PO Q8H PRN #12 capsule 09/23/20 Unknown Rx Butalb/Acetaminophen/Caffeine 1 cap PO Q8HR PRN #10 cap 09/24/20 Unknown Rx [Fioricet 50-300-40 mg CAP] Ondansetron [Zofran Odt] 4 mg PO Q8HR PRN #10 tab.rapdis 09/24/20 Unknown Rx Allergies/Adverse reactions: Allergies Allergy/AdvReac Type Severity Reaction Status Date / Time No Known Allergies Allergy Verified 08/24/17 10:52 ED Review of Systems ROS: Stated complaint: NECK PAIN Other details as noted in HPI Comment: All other systems reviewed and negative ED Past Medical Hx - Past Medical History Previous Medical History?: No Hx Hypertension: No Hx Congestive Heart Failure: No Hx Diabetes: No Hx Deep Vein Thrombosis: No Hx Renal Disease: No Hx Sickle Cell Disease: No Hx Seizures: No Hx Asthma: No Hx COPD: No Hx HIV: No - Surgical History Past Surgical History?: No - Social History Smoking Status: Never Smoker Substance Use Type: None - Medications Home Medications: Home Medications Medication Instructions Recorded Confirmed Last Taken Type Vit Calc,Iron,Folic 1 each PO DAILY 08/24/17 08/25/17 08/18/17 09:00 History [ Vitamins] labetaloL [Labetalol 200mg TAB] 200 mg PO BID #60 tablet 08/28/17 Unknown Rx Ibuprofen [Motrin 800 MG tab] 800 mg PO TID PRN #30 tablet 08/29/17 Unknown Rx Ibuprofen [Motrin 600 MG tab] 600 mg PO Q8H PRN #30 tablet 09/23/20 Unknown Rx Tizanidine HCl [Zanaflex 2mg CAP] 2 mg PO Q8H PRN #12 capsule 09/23/20 Unknown Rx Butalb/Acetaminophen/Caffeine 1 cap PO Q8HR PRN #10 cap 09/24/20 Unknown Rx [Fioricet 50-300-40 mg CAP] Ondansetron [Zofran Odt] 4 mg PO Q8HR PRN #10 tab.rapdis 09/24/20 Unknown Rx ED Physical Exam - General Limitations: No Limitations General appearance: alert, in no apparent distress - Head Head exam: Present: atraumatic, normocephalic - Eye Eye exam: Present: normal appearance, PERRL, EOMI. Absent: periorbital swelling, periorbital tenderness - ENT ENT exam: Present: mucous membranes moist - Neck Neck exam: Present: normal inspection, tenderness (bilateral c-spine paraspinal muscular ttp), full ROM - Respiratory Respiratory exam: Present: normal lung sounds bilaterally. Absent: respiratory distress, wheezes, rales, rhonchi, stridor, chest wall tenderness, accessory muscle use, decreased breath sounds, prolonged expiratory - Cardiovascular Cardiovascular Exam: Present: regular rate, normal heart sounds. Absent: systolic murmur, diastolic murmur, rubs, gallop - Neurological Exam Neurological exam: Present: alert, oriented X3, CN II-XII intact, normal gait. Absent: motor sensory deficit - Psychiatric Psychiatric exam: Present: normal affect, normal mood - Skin Skin exam: Present: warm, dry, intact ED Course Vital Signs 09/24/20 02:56 Temperature 97.7 F Pulse Rate 65 Respiratory 18 Rate Blood Pressure 123/83 [Left] O2 Sat by Pulse 100 Oximetry - Radiology Data Radiology results: report reviewed Ordering Physician: MULUGETA ZAMORA Date of Service: 09/24/20 Procedure(s): CT head/brain wo con Accession Number(s): [id number] cc: MULUGETA ZAMORA CT HEAD WITHOUT CONTRAST INDICATION / CLINICAL INFORMATION: DAVIS after flipping on trampoline a week ago. TECHNIQUE: All CT scans at this location are performed using CT dose reduction for ALARA by means of automated exposure control. COMPARISON: None available. FINDINGS: HEMORRHAGE: None. EXTRA-AXIAL SPACES: Normal in size and morphology for the patient's age. VENTRICULAR SYSTEM: Normal in size and morphology for the patient's age. CEREBRAL PARENCHYMA: No significant abnormality. No acute territorial infarct. MIDLINE SHIFT / HERNIATION: None. CEREBELLUM / BRAINSTEM: No significant abnormality. ORBITS: Normal as visualized. SOFT TISSUES: No significant abnormality. SKULL: No significant abnormality. PARANASAL SINUSES / MASTOID AIR CELLS: Normal as visualized. ADDITIONAL FINDINGS: None. IMPRESSION: 1. No acute intracranial abnormality. Signer Name: Santana Raines MD Signed: 09/24/2020 3:37 AM Workstation Name: [id number] Transcribed By: SS Dictated By: Santana Raines MD Electronically Authenticated By: Santana Raines MD Signed Date/Time: 09/24/20336 DD/ 4 TD/TT: - Medical Decision Making Patient is a 25-year-old female presents emergency room complaints of a head injury that occurred a week ago. Patient states that she was jumping on the trampoline landed incorrectly. Patient was evaluated in the emergency department yesterday due to neck pain and had a CT scan of the cervical spine which showed no acute findings. she was given a prescription for ibuprofen and tizanidine. She states that she has only taken 1 dose of the medication. She states that her neck pain is improving but she continues to have a persistent headache. She states that she had one episode of vomiting secondary to the headache. She denies any vision changes, numbness, weakness, bowel or bladder incontinence, any other injury. no Medical history. No allergies medications. Last menstrual cycle 09/04/2020. Vitals are normal. No neuro deficits on exam. CT head 1. No acute intracranial abnormality. Discussed all results with patient and answered questions. Symptoms likely related to minor head injury versus concussion. Patient given prescription for Fioricet and Zofran. Discussed the importance of neurology follow-up and primary care follow-up. Discussed strict return precautions. Advised patient Please take medication as prescribed. Follow-up with your primary care doctor. Follow-up with the neurologist. Return to emergency room for any new or worsening symptoms. Critical care attestation.: If time is entered above; I have spent that time in minutes in the direct care of this critically ill patient, excluding procedure time. ED Disposition Clinical Impression: Minor head injury Qualifiers: Encounter type: initial encounter Qualified Code(s): S09.90XA - Unspecified injury of head, initial encounter Disposition: TO HOME OR SELFCARE Is pt being admited?: No Does the pt Need Aspirin: No Condition: Stable Instructions: Head Injury, Adult, [id number] Additional Instructions: Please take medication as prescribed. Follow-up with your primary care doctor. Follow-up with the neurologist. Return to emergency room for any new or worsening symptoms. The CT scan of your head is normal Prescriptions: Butalb/Acetaminophen/Caffeine [Fioricet 50-300-40 mg CAP] 1 cap PO Q8HR PRN #10 cap PRN Reason: headache Ondansetron [Zofran Odt] 4 mg PO Q8HR PRN #10 tab.rapdis PRN Reason: Nausea And Vomiting Referrals: LAURO JONES MD [Primary Care Provider] - 2-3 Days STEF CRISTINA MD [Referring] - 2-3 Days Time of Disposition: 03:45 Print Language: SINHALA
--- NOTE | 2020-09-24 03:41 | Cat Scan Report ---
CT HEAD WITHOUT CONTRAST INDICATION / CLINICAL INFORMATION: DAVIS after flipping on trampoline a week ago. TECHNIQUE: All CT scans at this location are performed using CT dose reduction for ALARA by means of automated exposure control. COMPARISON: None available. FINDINGS: HEMORRHAGE: None. EXTRA-AXIAL SPACES: Normal in size and morphology for the patient's age. VENTRICULAR SYSTEM: Normal in size and morphology for the patient's age. CEREBRAL PARENCHYMA: No significant abnormality. No acute territorial infarct. MIDLINE SHIFT / HERNIATION: None. CEREBELLUM / BRAINSTEM: No significant abnormality. ORBITS: Normal as visualized. SOFT TISSUES: No significant abnormality. SKULL: No significant abnormality. PARANASAL SINUSES / MASTOID AIR CELLS: Normal as visualized. ADDITIONAL FINDINGS: None. IMPRESSION: 1. No acute intracranial abnormality. Signer Name: Santana Raines MD Signed: 09/24/2020 3:37 AM Workstation Name: [id number]
== END 2020-09-24 04:17 | disposition home or self-care (01) ==
LOC: ED 01:42
DX: S09.90XA Unspecified injury of head, initial encounter (principal); Z79.899 Other long term (current) drug therapy; X58.XXXA Exposure to other specified factors, initial encounter; Y93.44 Activity, trampolining; Y92.89 Other specified places as the place of occurrence of the external cause; Y99.8 Other external cause status
CPT/HCPCS: 70450

== ENCOUNTER 2020-09-26 03:39 | Emergency (ER) | payer SELFPAY ==
[2020-09-26] MEDS ORDERED: HYDROcodone/ACETAMINOPHEN 5-325 MG TAB PO STA (03:49)
[2020-09-26] MEDS ORDERED: ONDANSETRON 4 MG ODT TAB PO STA (03:49)
[2020-09-26 03:51] VITALS: BP 138/89
--- NOTE | 2020-09-26 05:04 | Emergency Department Report ---
ED General Adult HPI - General Chief complaint: Dizziness Stated complaint: DIZZINESS/HEAD PAIN Time Seen by Provider: 09/26/20 03:49 Source: patient Mode of arrival: Ambulatory Limitations: No Limitations - History of Present Illness Initial comments: 25-year-old female over 1 week status post trampoline accident resulting in neck pain and headaches for which she has been seen in emergency department x2. She is she is undergone a CT scan of the head and neck showing no acute pathology and has been prescribed muscle relaxers and anti-inflammatories. Anti- inflammatories caused her to have a lot of nausea and vomiting which began to cause her neck pain to worsen and having pain to the base of the skull she was seen again in the emergency department as a follow-up for the worsening pain and was prescribed with Zofran and Fioricet which she states does help her pain when she takes them here but she is not yet picked up her prescription and therefore her nausea and pain has flared up again and she seeks treatment while here in the emergency department. She reports no new injury no worsening symptoms but symptoms do continue to linger because of compliance related issues Radiation: neck Severity scale (0 -10): 10 Quality: aching Consistency: constant Improves with: none Worsens with: movement Associated Symptoms: denies: confusion, cough, diaphoresis, malaise, nausea/vomiting, shortness of breath, syncope - Related Data Home Medications Medication Instructions Recorded Confirmed Last Taken Vit Calc,Iron,Folic 1 each PO DAILY 08/24/17 08/25/17 08/18/17 09:00 [ Vitamins] Previous Rx's Medication Instructions Recorded Last Taken Type labetaloL [Labetalol 200mg TAB] 200 mg PO BID #60 tablet 08/28/17 Unknown Rx Ibuprofen [Motrin 800 MG tab] 800 mg PO TID PRN #30 tablet 08/29/17 Unknown Rx Ibuprofen [Motrin 600 MG tab] 600 mg PO Q8H PRN #30 tablet 09/23/20 Unknown Rx Tizanidine HCl [Zanaflex 2mg CAP] 2 mg PO Q8H PRN #12 capsule 09/23/20 Unknown Rx Butalb/Acetaminophen/Caffeine 1 cap PO Q8HR PRN #10 cap 09/24/20 Unknown Rx [Fioricet 50-300-40 mg CAP] Ondansetron [Zofran Odt] 4 mg PO Q8HR PRN #10 tab.rapdis 09/24/20 Unknown Rx Allergies Allergy/AdvReac Type Severity Reaction Status Date / Time No Known Allergies Allergy Verified 08/24/17 10:52 ED Review of Systems ROS: Stated complaint: DIZZINESS/HEAD PAIN Other details as noted in HPI Comment: All other systems reviewed and negative ED Past Medical Hx - Past Medical History Previous Medical History?: No Hx Hypertension: No Hx Congestive Heart Failure: No Hx Diabetes: No Hx Deep Vein Thrombosis: No Hx Renal Disease: No Hx Sickle Cell Disease: No Hx Seizures: No Hx Asthma: No Hx COPD: No Hx HIV: No - Surgical History Past Surgical History?: No - Social History Smoking Status: Current Every Day Smoker Substance Use Type: Marijuana - Medications Home Medications: Home Medications Medication Instructions Recorded Confirmed Last Taken Type Vit Calc,Iron,Folic 1 each PO DAILY 08/24/17 08/25/17 08/18/17 09:00 History [ Vitamins] labetaloL [Labetalol 200mg TAB] 200 mg PO BID #60 tablet 08/28/17 Unknown Rx Ibuprofen [Motrin 800 MG tab] 800 mg PO TID PRN #30 tablet 08/29/17 Unknown Rx Ibuprofen [Motrin 600 MG tab] 600 mg PO Q8H PRN #30 tablet 09/23/20 Unknown Rx Tizanidine HCl [Zanaflex 2mg CAP] 2 mg PO Q8H PRN #12 capsule 09/23/20 Unknown Rx Butalb/Acetaminophen/Caffeine 1 cap PO Q8HR PRN #10 cap 09/24/20 Unknown Rx [Fioricet 50-300-40 mg CAP] Ondansetron [Zofran Odt] 4 mg PO Q8HR PRN #10 tab.rapdis 09/24/20 Unknown Rx ED Physical Exam - General Limitations: No Limitations General appearance: alert, in no apparent distress - Head Head exam: Present: atraumatic, normocephalic - Eye Eye exam: Present: normal appearance, PERRL, EOMI Pupils: Present: normal accommodation - ENT ENT exam: Present: mucous membranes moist - Neck Neck exam: Present: normal inspection, tenderness, other (Tenderness to the neck with palpation. Small spasm is noted to the left trapezial region. No bruising no ecchymosis no crepitus). Absent: lymphadenopathy, thyromegaly - Respiratory Respiratory exam: Present: normal lung sounds bilaterally. Absent: respiratory distress - Cardiovascular Cardiovascular Exam: Present: regular rate, normal rhythm. Absent: systolic murmur, diastolic murmur, rubs, gallop - GI/Abdominal GI/Abdominal exam: Present: soft, normal bowel sounds - Extremities Exam Extremities exam: Present: normal inspection, normal capillary refill - Back Exam Back exam: Present: normal inspection - Neurological Exam Neurological exam: Present: alert, oriented X3, CN II-XII intact, normal gait, other (Gait coordinated and smooth. Romberg is negative.) - Psychiatric Psychiatric exam: Present: normal affect, normal mood. Absent: anxious, flat affect - Skin Skin exam: Present: warm, dry, intact, normal color. Absent: rash ED Course Vital Signs 09/26/20 03:43 Temperature 97.3 F L Pulse Rate 101 H Respiratory 16 Rate Blood Pressure 138/89 O2 Sat by Pulse 97 Oximetry ED Medical Decision Making - Medical Decision Making 25-year-old female with chronic neck pain continue treated with [place] and Zofran for the nausea seeing tolerating medication no complications resting in chair in awkward position appears to be sleeping no acute distress which is a sign of significant progress from her initial presentation for this particular visit. Advised of the importance of compliance and follow-up with orthopedics and her primary care provider for definitive treatment. Critical care attestation.: If time is entered above; I have spent that time in minutes in the direct care of this critically ill patient, excluding procedure time. ED Disposition Clinical Impression: Neck pain, Cephalgia Disposition: DC-01 TO HOME OR SELFCARE Is pt being admited?: No Does the pt Need Aspirin: No (88) Condition: Stable Instructions: Facet Syndrome, Neck Exercises, Radicular Pain, Pain Without a Known Cause Referrals: MANDY BASURTO MD [Primary Care Provider] - 3-5 Days
== END 2020-09-26 06:18 | disposition home or self-care (01) ==
LOC: ED 03:39
DX: M54.2 Cervicalgia (principal); R51.9 Headache, unspecified; F17.200 Nicotine dependence, unspecified, uncomplicated; F12.10 Cannabis abuse, uncomplicated; Z79.899 Other long term (current) drug therapy
CPT/HCPCS: 99283; Q0162